=== PATIENT | male | born 1985 | race American Indian/Alaskan Native ===

== ENCOUNTER 2018-09-14 12:41 | Inpatient (IN) | payer BC ==
[2018-09-14] MEDS ORDERED: Morphine 2 mg/ml ISec IVP STA (13:26)
[2018-09-14] MEDS ORDERED: Sodium Chloride 0.9% 500 ML IV STA (13:26)
--- NOTE | 2018-09-14 13:32 | ED PDOC ---
Arrival/HPI - General Chief Complaint: Abdominal Pain Time Seen by Provider: 09/14/18 12:48 Historian: Patient - History of Present Illness Narrative History of Present Illness (Text): 09/14/18 13:25 Patient is a 33 year old male, with past medical history of diverticulitis, presents to the Emergency Department complaining of left lower quadrant abdominal pain since Thursday morning. Patient reports sharp constant pain rated at 10/10 in severity which progressively worsened with pain radiating to the right side throughout Thursday, prompting him to present to the ED for medical evaluation. Patient reports similar symptoms early July for which he was diagnosed with diverticulitis at [facility]. Patient denies any other associated somatic complaints. Patient denies any fever, chills, nausea, vomiting, or diarrhea. Patient denies any dysuria, urinary output changes or back pain. Denies any headache or dizziness. Denies any other complaints. Denies dark or bloody stools. 09/14/18 17:53 Time/Duration: < week Symptom Onset: Gradual Symptom Course: Unchanged Quality: Aching Activities at Onset: Light Context: Home Past Medical History - Provider Review Nursing Documentation Reviewed: Yes - Infectious Disease Hx of Infectious Diseases: None - Cardiac Hx Cardiac Disorders: No - Pulmonary Hx Respiratory Disorders: No - Neurological Hx Neurological Disorder: No - HEENT Hx HEENT Disorder: No - Renal Hx Renal Disorder: No - Endocrine/Metabolic Hx Endocrine Disorders: No - Hematological/Oncological Hx Blood Disorders: No - Integumentary Hx Dermatological Disorder: No - Musculoskeletal/Rheumatological Hx Musculoskeletal Disorders: No - Gastrointestinal Hx Gastrointestinal Disorders: Yes Hx Diverticulitis: Yes - Genitourinary/Gynecological Hx Genitourinary Disorders: No - Psychiatric Hx Psychophysiologic Disorder: No Hx Substance Use: Yes (Socially Marijuana) - Surgical History Other/Comment: Biopsy of abdomen Family/Social History - Physician Review Nursing Documentation Reviewed: Yes Family/Social History: Unknown Family HX Smoking Status: Light Smoker < 10 Cigarettes Daily Hx Alcohol Use: Yes Frequency of alcohol use: Socially Hx Substance Use: Yes (Socially Marijuana) Allergies/Home Meds Allergies/Adverse Reactions: Allergies shellfish derived Allergy (Verified 09/14/18 12:52) ANAPHYLAXIS Home Medications: Home Meds Medication Instructions Recorded Confirmed No Known Home Med 09/14/18 09/14/18 Review of Systems - Review of Systems Constitutional: absent: Fatigue, Fevers Respiratory: absent: SOB, Cough, Wheezing Cardiovascular: absent: Chest Pain, DURAN Gastrointestinal: Abdominal Pain, Appetite Changes. absent: Diarrhea, Nausea, Vomiting, Hematochezia, Hematemesis, Food Intolerance Genitourinary Male: absent: Dysuria, Hematuria Musculoskeletal: absent: Back Pain, Neck Pain Skin: absent: Rash Neurological: absent: Headache, Dizziness Endocrine: absent: Polyuria Hemo/Lymphatic: absent: Easy Bleeding Psychiatric: absent: Anxiety, Depression Physical Exam - Physical Exam Narrative Physical Exam (Text): 09/14/18 13:33 Head: Atraumatic. Normocephalic. Eyes: PERRL. EOMI. Conjunctivae are not pale. Sclera anicteric. ENT: Mucous membranes are moist and intact. Oropharynx is clear and symmetric. Neck: Supple. Full ROM. No JVD. No lymphadenopathy. No meningeal signs. Cardiovascular: Regular rate. Regular rhythm. No murmurs, rubs, or gallops. Distal pulses are 2+ and symmetric. Pulmonary/Chest: No evidence of respiratory distress. Clear to auscultation bilaterally. No wheezing, rales or rhonchi. Abdominal: Soft and non-distended. Focal LLQ abdominal tenderness. Moderate pain on palpation. No rebound, guarding, or rigidity. No organomegaly. Good bowel sounds. No inguinal mass. Genitourinary: no testicular pain Back: No CVA tenderness. Extremities: No edema. No cyanosis. No clubbing. Full range of motion in all extremities. No calf tenderness. No pain with straight leg testing. Skin: Skin is warm and dry. No petechiae. No purpura. Neurological: Alert, awake, and oriented. Motor and sensory exam intact. Psychiatric: Good eye contact. Normal interaction, affect, and behavior. Vital Signs Reviewed: Yes Vital Signs Temp Pulse Resp BP Pulse Ox 09/14/18 12:52 97.6 F 84 17 106/68 97 Temperature: Afebrile Blood Pressure: Normal Pulse: Regular Respiratory Rate: Normal Appearance: Positive for: Non-Toxic, Uncomfortable Pain Distress: Moderate Mental Status: Positive for: Alert and Oriented X 3 Medical Decision Making ED Course and Treatment: 09/14/18 13:35 Impression: 33 year old male presents to the Emergency Department complaining of left lower quadrant abdominal pain constant, for past 2-3 days. Differential Diagnosis included but are not limited to: Bowel obstruction vs. diverticulitis vs. colitis Plan: -- VBG -- CT of Abdomen/Pelvis -- Labs -- Morphine -- IV Fluids -- Blood Culture -- Urine Culture -- Urinalysis -- Reassess and disposition Prior Visits: Notes and results from previous visits were reviewed. Progress Notes: 09/14/18 13:[address] of Abdomen/Pelvis with IV contrast last month "early July at [place]" "showed diverticulitis". Patient on exam with focal left lower quadrant pain, no pulsatile masses. IV pain medication and iv line with fluids ordered. On reassessment pain improved but persistent. 09/14/18 15:08 CT suggestive of colitis possible diverticulitis. Due to persistent and worsening symptoms despite outpatient treatment with antibiotics, patient will be admitted for serial exams, iv antibiotics. Abnormal CT findings reviewed with patient. He has mild leukocytosis. Case discussed with hospitalist, who is aware and accepts patient under his service. IV antibiotics initiated. Patient informs improved pain with morphine. 09/14/18 17:58 - RAD Interpretation Narrative RAD Interpretations (Text): 09/14/18 15:00 CT of Abdomen reviewed by radiologist, shows: Segmental colitis affects the proximal to mid sigmoidal colon with no deinite free intra peritoneal gas or definite abscess appreciated. Borderline diverticulitis changes may indicate that this is diverticulitis. Lack of intravenous and oral contrast limits the evaluation. Secret Service Agent: Radiologist - Neoibe Statement The provider has reviewed the documentation as recorded by the Neoibe Lucy Castle. All medical record entries made by the Neoibzeny were at my direction and personally dictated by me. I have reviewed the chart and agree that the record accurately reflects my personal performance of the history, physical exam, medical decision making, and the department course for this patient. I have also personally directed, reviewed, and agree with the discharge instructions and disposition. Disposition/Present on Arrival - Present on Arrival Any Indicators Present on Arrival: No History of DVT/PE: No History of Uncontrolled Diabetes: No Urinary Catheter: No History of Decub. Ulcer: No History Surgical Site Infection Following: None - Disposition Have Diagnosis and Disposition been Completed?: Yes Diagnosis: Abdominal pain, Colitis, Diverticulitis Disposition: HOSPITALIZED Disposition Time: 14:45 Patient Plan: Admission Patient Problems: Current Active Problems Problem Status Onset Abdominal pain Acute Colitis Acute Diverticulitis Acute Condition: FAIR
[2018-09-14 14:24] LABS: BASO # 0.01 K/mm3 (0.0-2.0); BASO % 0.1 % (0.0-3.0); EOS # 0.1 (0.0-0.7); EOS % 0.4 % (1.5-5.0); GRAN # 9.28 (1.4-6.5); GRAN % 80.5 % (50.0-68.0); HEMOGLOBIN 14.5 g/dL (14.0-18.0); LYMPH # 1.2 (1.2-3.4); LYMPH % 10.2 % (22.0-35.0); MEAN CELL VOLUME 79.5 fl (80.0-105.0); MEAN CORPUSCULAR HEMOGLOBIN 27.2 pg (25.0-35.0); MEAN CORPUSCULAR HGB CONC 34.2 g/dl (31.0-37.0); MEAN PLATELET VOLUME 10.6 fl (7.0-11.0); MONO % 8.8 % (1.0-6.0); RBC 5.33 10^6/uL (3.5-6.1); RED CELL DISTRIBUTION WIDTH 14.6 % (11.5-14.5); VENOUS BLOOD GAS BASE EXCESS 3.8 mmol/L (0.0-2.0); VENOUS BLOOD GAS PO2 37 mm/Hg (30-55); VENOUS BLOOD PH 7.35 (7.32-7.43); WHITE BLOOD COUNT 11.5 10^3/ul (4.5-11.0)
[2018-09-14 14:32] LABS: INR 1.15; PROTHROMBIN TIME 13.3 SECONDS (9.4-12.5)
[2018-09-14 14:33] LABS: PARTIAL THROMBOPLASTIN TIME 32.7 Seconds (25.1-36.5)
[2018-09-14 14:34] LABS: ALB/GLOB RATIO 1.3 (1.1-1.8); ALBUMIN 4.3 g/dL (3.0-4.8); ALT/SGPT 29 U/L (7-56); AMYLASE 86 U/L (35-125); AST/SGOT 25 U/L (17-59); BLOOD UREA NITROGEN 11 mg/dL (7-21); CALCIUM 9.5 mg/dL (8.4-10.5); GFR NON-AFRICAN AMERICAN > 60; LIPASE 60 U/L (23-300)
--- NOTE | 2018-09-14 14:37 | CT ---
Date of service: 09/14/2018 PROCEDURE: CT Abdomen and Pelvis without intravenous contrast HISTORY: llq abdominal pain COMPARISON: None. TECHNIQUE: Helical CT of the abdomen and pelvis was performed without oral or intravenous contrast as per referring physician request. Coronal and sagittal reformats were generated. Contrast dose: None Radiation dose: Total exam DLP = 322.79 mGy-cm. This CT exam was performed using one or more of the following dose reduction techniques: Automated exposure control, adjustment of the mA and/or kV according to patient size, and/or use of iterative reconstruction technique. FINDINGS: LOWER THORAX: Unremarkable. LIVER: Unremarkable. No gross lesion or ductal dilatation. GALLBLADDER AND BILE DUCTS: Unremarkable. PANCREAS: Unremarkable. No gross lesion or ductal dilatation. SPLEEN: Unremarkable. ADRENALS: Unremarkable. No mass. KIDNEYS AND URETERS: There is no radiodense urolithiasis, obstructive uropathy or perinephric reaction bilaterally. Kidneys appear homogeneous in overall density throughout. Urinary bladder appears unremarkable as well. VASCULATURE: Unremarkable. No aortic aneurysm. No aortic atherosclerotic calcification or mural plaque present. BOWEL: No bowel obstruction identified. There is prominent thickening of proximal to mid sigmoid colon with local pericolic reaction but no associated free intrarenal gas or prominent fluid collection. Pattern is suggestive of segmental colitis. There questionable diverticula associated with this segment and this could reflect diverticulitis. Clinically correlate further. APPENDIX: No CT evidence to suggest appendicitis at this time. Punctate appendicular is or retained oral contrast material is identified within the appendix. PERITONEUM: Unremarkable. No free fluid. No free air. LYMPH NODES: Unremarkable. No enlarged lymph nodes. BLADDER: Unremarkable. REPRODUCTIVE: Unremarkable. BONES: No acute fracture. OTHER FINDINGS: None. IMPRESSION: Segmental colitis affects the proximal to mid sigmoid colon with no definite free intra peritoneal gas or definite abscess appreciated. Borderline diverticular changes may indicate that this is diverticulitis. Lack of intravenous and oral contrast limits the evaluation.
[2018-09-14] MEDS ORDERED: metroNIDAZOLE IV 500 mg/100 ml 500 MG/100 ML BAG IV ONE (14:54)
[2018-09-14] MEDS ORDERED: cefTRIAXone 1 gm 1 GM/100 ML BAG IVPB STA (14:54)
[2018-09-14 16:07] LABS: PH,URINE 6.5 (4.7-8.0); URINE BILIRUBIN NEGATIVE (NEGATIVE); URINE BLOOD NEGATIVE (NEGATIVE); URINE GLUCOSE (UA) NEGATIVE (NEGATIVE); URINE LEUKOCYTE ESTERASE TRACE Leu/uL (NEGATIVE); URINE PROTEIN NEGATIVE mg/dL (<30 mg/dL); URINE UROBILINOGEN 0.2 E.U./dL (<1 E.U./dL)
[2018-09-14 16:10] LABS: URINE APPEARANCE CLEAR (CLEAR); URINE COLOR YELLOW (YELLOW)
--- NOTE | 2018-09-14 16:19 | CP.PCM.HP ---
<Den Marr - Last Filed: 09/14/18 16:29> History of Present Illness - History of Present Illness History of Present Illness: Den Marr PGY1 History and Physical for Dr Torres Pt is a 33 year old male, with PMH of diverticulitis, presents to the Emergency Department complaining of LLQ abdominal pain since (09/12/18) Thursday morning. Pt states he has had a constant sharp 10/10 pain which has gotten progressively worse and radiates to his right side since Thursday, prompting him to present to the ED for medical evaluation. Pt also had an episode of diverticulitis in early July which was diagnosed at [facility]. Patient denies any other complaints. Denies any fever, chills, nausea, vomiting, or diarrhea. A 12 point ROS was obtained and added to the HPI where appropriate. PMH: diverticulitis PSH: colonoscopy SH: Tobacco "several cigs/day", Alcohol occasionally, Drugs: marijuana FH: denies Home meds: denies Allergies: shellfish Present on Admission - Present on Admission Any Indicators Present on Admission: No Review of Systems - Review of Systems Review of Systems: a 12 point ROS was obtained and added to the HPI where appropriate. Past Patient History - Infectious Disease Hx of Infectious Diseases: None - Past Social History Smoking Status: Light Smoker < 10 Cigarettes Daily - CARDIAC Hx Cardiac Disorders: No - PULMONARY Hx Respiratory Disorders: No - NEUROLOGICAL Hx Neurological Disorder: No - HEENT Hx HEENT Problems: No - RENAL Hx Chronic Kidney Disease: No - ENDOCRINE/METABOLIC Hx Endocrine Disorders: No - HEMATOLOGICAL/ONCOLOGICAL Hx Blood Disorders: No - INTEGUMENTARY Hx Dermatological Problems: No - MUSCULOSKELETAL/RHEUMATOLOGICAL Hx Musculoskeletal Disorders: No - GASTROINTESTINAL Hx Gastrointestinal Disorders: Yes Hx Diverticulitis: Yes - GENITOURINARY/GYNECOLOGICAL Hx Genitourinary Disorders: No - PSYCHIATRIC Hx Psychophysiologic Disorder: No Hx Substance Use: Yes (Socially Marijuana) - SURGICAL HISTORY Other/Comment: Biopsy of abdomen Meds Allergies/Adverse Reactions: Allergies Allergy/AdvReac Type Severity Reaction Status Date / Time shellfish derived Allergy ANAPHYLAXIS Verified 09/14/18 12:52 Physical Exam - Head Exam Head Exam: ATRAUMATIC, NORMAL INSPECTION, NORMOCEPHALIC - Eye Exam Eye Exam: EOMI - ENT Exam ENT Exam: Mucous Membranes Moist - Neck Exam Neck exam: Positive for: Full Rom - Respiratory Exam Respiratory Exam: Clear to Auscultation Bilateral, NORMAL BREATHING PATTERN. absent: Accessory Muscle Use, Wheezes, Respiratory Distress - Cardiovascular Exam Cardiovascular Exam: RRR, +S1, +S2. absent: Diastolic murmur, Systolic Murmur - GI/Abdominal Exam GI & Abdominal Exam: Normal Bowel Sounds, Soft, Tenderness. absent: Firm, Rebound, Rigid Additional comments: tenderness to palpation in the LLQ - Extremities Exam Extremities exam: Positive for: full ROM. Negative for: calf tenderness, pedal edema - Neurological Exam Neurological exam: Alert, Oriented x3 - Psychiatric Exam Psychiatric exam: Normal Affect, Normal Mood - Skin Skin Exam: Dry, Normal Color, Warm Results - Vital Signs Recent Vital Signs: Last Vital Signs Temp 97.6 F 09/14/18 12:52 Pulse 84 09/14/18 12:52 Resp 17 09/14/18 12:52 BP 106/68 09/14/18 12:52 Pulse Ox 97 09/14/18 12:52 - Labs Result Diagrams: 09/14/18 14:10 09/14/18 14:10 Labs: Laboratory Results - last 24 hr 09/14/18 09/14/18 09/14/18 14:10 14:10 14:10 WBC 11.5 H RBC 5.33 Hgb 14.5 Hct 42.4 MCV 79.5 L MCH 27.2 MCHC 34.2 RDW 14.6 H Plt Count 280 MPV 10.6 Gran % 80.5 H Lymph % (Auto) 10.2 L Dewitt % (Auto) 8.8 H Eos % (Auto) 0.4 L Baso % (Auto) 0.1 Gran # 9.28 H Lymph # (Auto) 1.2 Dewitt # (Auto) 1.0 H Eos # (Auto) 0.1 Baso # (Auto) 0.01 PT INR APTT pO2 37 VBG pH 7.35 VBG pCO2 56.0 VBG HCO3 30.9 H VBG Total CO2 32.6 H VBG O2 Sat (Calc) 70.9 H VBG Base Excess 3.8 H VBG Potassium 4.6 Sodium 136.0 137 Chloride 100.0 101 Glucose 98 Lactate 0.9 FiO2 21.0 Potassium 4.6 Carbon Dioxide 29 Anion Gap 12 BUN 11 Creatinine 0.9 Est GFR ( Amer) > 60 Est GFR (Non-Af Amer) > 60 Random Glucose 100 Calcium 9.5 Total Bilirubin 0.5 AST 25 ALT 29 Alkaline Phosphatase 76 Total Protein 7.6 Albumin 4.3 Globulin 3.4 Albumin/Globulin Ratio 1.3 Amylase 86 Lipase 60 Venous Blood Potassium 4.6 09/14/18 14:10 WBC RBC Hgb Hct MCV MCH MCHC RDW Plt Count MPV Gran % Lymph % (Auto) Dewitt % (Auto) Eos % (Auto) Baso % (Auto) Gran # Lymph # (Auto) Dewitt # (Auto) Eos # (Auto) Baso # (Auto) PT 13.3 H INR 1.15 APTT 32.7 pO2 VBG pH VBG pCO2 VBG HCO3 VBG Total CO2 VBG O2 Sat (Calc) VBG Base Excess VBG Potassium Sodium Chloride Glucose Lactate FiO2 Potassium Carbon Dioxide Anion Gap BUN Creatinine Est GFR ( Amer) Est GFR (Non-Af Amer) Random Glucose Calcium Total Bilirubin AST ALT Alkaline Phosphatase Total Protein Albumin Globulin Albumin/Globulin Ratio Amylase Lipase Venous Blood Potassium Assessment & Plan - Assessment and Plan (Free Text) Assessment: Pt is a 33 year old male, with PMH of diverticulitis, presents to the Emergency Department complaining of LLQ abdominal pain since (09/12/18) Thursday morning. Pt states he has had a constant sharp 10/10 pain which has gotten progressively worse and radiates to his right side since Thursday, prompting him to present to the ED for medical evaluation. Plan: Diverticulitis - WBC 11.5 - follow up blood, urine cultures - metronidaozle - ceftriaxone - morphine - zofran - NS@100 - NPO - CT abdomen and pelvis: segmental colitis of the proximal to mid sigmoid colon with no definite free intra perotineal gas or abscess appreciated. Borderline diverticular changes - GI consulted Ppx - protonix - SCD Pt seen, examined, assessment an plan discussed with Dr Brian Marr PGY1 - Date & Time Date: 09/14/18 Time: 16:22 <Daniel Torres - Last Filed: 09/14/18 16:50> Results - Vital Signs Recent Vital Signs: Last Vital Signs Temp 97.6 F 09/14/18 12:52 Pulse 84 09/14/18 12:52 Resp 17 09/14/18 12:52 BP 106/68 09/14/18 12:52 Pulse Ox 97 09/14/18 12:52 - Labs Result Diagrams: 09/14/18 14:10 09/14/18 14:10 Labs: Laboratory Results - last 24 hr 09/14/18 09/14/18 09/14/18 14:10 14:10 14:10 WBC 11.5 H RBC 5.33 Hgb 14.5 Hct 42.4 MCV 79.5 L MCH 27.2 MCHC 34.2 RDW 14.6 H Plt Count 280 MPV 10.6 Gran % 80.5 H Lymph % (Auto) 10.2 L Dewitt % (Auto) 8.8 H Eos % (Auto) 0.4 L Baso % (Auto) 0.1 Gran # 9.28 H Lymph # (Auto) 1.2 Dewitt # (Auto) 1.0 H Eos # (Auto) 0.1 Baso # (Auto) 0.01 PT INR APTT pO2 37 VBG pH 7.35 VBG pCO2 56.0 VBG HCO3 30.9 H VBG Total CO2 32.6 H VBG O2 Sat (Calc) 70.9 H VBG Base Excess 3.8 H VBG Potassium 4.6 Sodium 136.0 137 Chloride 100.0 101 Glucose 98 Lactate 0.9 FiO2 21.0 Potassium 4.6 Carbon Dioxide 29 Anion Gap 12 BUN 11 Creatinine 0.9 Est GFR ( Amer) > 60 Est GFR (Non-Af Amer) > 60 Random Glucose 100 Calcium 9.5 Total Bilirubin 0.5 AST 25 ALT 29 Alkaline Phosphatase 76 Total Protein 7.6 Albumin 4.3 Globulin 3.4 Albumin/Globulin Ratio 1.3 Amylase 86 Lipase 60 Venous Blood Potassium 4.6 Urine Color Urine Appearance Urine pH Ur Specific [place] Urine Protein Urine Glucose (UA) Urine Ketones Urine Blood Urine Nitrate Urine Bilirubin Urine Urobilinogen Ur Leukocyte Esterase Urine RBC Urine WBC Ur Epithelial Cells Urine Bacteria Hyaline Casts 09/14/18 09/14/18 14:10 15:45 WBC RBC Hgb Hct MCV MCH MCHC RDW Plt Count MPV Gran % Lymph % (Auto) Dewitt % (Auto) Eos % (Auto) Baso % (Auto) Gran # Lymph # (Auto) Dewitt # (Auto) Eos # (Auto) Baso # (Auto) PT 13.3 H INR 1.15 APTT 32.7 pO2 VBG pH VBG pCO2 VBG HCO3 VBG Total CO2 VBG O2 Sat (Calc) VBG Base Excess VBG Potassium Sodium Chloride Glucose Lactate FiO2 Potassium Carbon Dioxide Anion Gap BUN Creatinine Est GFR ( Amer) Est GFR (Non-Af Amer) Random Glucose Calcium Total Bilirubin AST ALT Alkaline Phosphatase Total Protein Albumin Globulin Albumin/Globulin Ratio Amylase Lipase Venous Blood Potassium Urine Color Yellow Urine Appearance Clear Urine pH 6.5 Ur Specific [place] 1.015 Urine Protein Negative Urine Glucose (UA) Negative Urine Ketones 15 H Urine Blood Negative Urine Nitrate Negative Urine Bilirubin Negative Urine Urobilinogen 0.2 Ur Leukocyte Esterase Trace H Urine RBC Negative Urine WBC 0 - 2 Ur Epithelial Cells None Urine Bacteria Neg Hyaline Casts 0 - 2 Attending/Attestation - Attestation I have personally seen and examined this patient.: Yes I have fully participated in the care of the patient.: Yes I have reviewed all pertinent clinical information: Yes Notes (Text): 09/14/18 16:47 33 year old male with past medical history of diverticulitis who presents with complaint of left lower quadrant pain. He states when didn't complete his recently prescribed antibiotics last month from his initial diverticulitis episode. CT abd/pelvis was reviewed; shows segmental colitis of the proximal to mid sigmoid colon with borderline diverticular changes. Patient is NPO, on iv fluids, antibiotics and analgesics. GI evaluation is requested. Daniel Torres MD Hospitalist.
[2018-09-14 16:24] LABS: URINE BACTERIA NEG (NEG); URINE HYALINE CAST 0 - 2 /hpf; URINE RBC NEGATIVE /hpf (0-2); URINE WBC 0 - 2 /hpf (0-6)
[2018-09-14] MEDS: Sodium Chloride 0.9% 1,000 ML IV SCH (17:27)
[2018-09-14] MEDS: Morphine 2 mg/ml ISec IVP PRN (19:36)
[2018-09-14] MEDS ORDERED: Influenza Vaccine 60 mcg/0.5 mL SYR (4YR UP) IM ONE (20:29)
[2018-09-14] MEDS: metroNIDAZOLE IV 500 mg/100 ml 500 MG/100 ML BAG IVPB SCH (21:00)
[2018-09-15] MEDS: Morphine 2 mg/ml ISec IVP PRN ×4 (01:47→21:15)
[2018-09-15] MEDS: Sodium Chloride 0.9% 1,000 ML IV SCH ×2 (03:00→13:40)
[2018-09-15] MEDS: metroNIDAZOLE IV 500 mg/100 ml 500 MG/100 ML BAG IVPB SCH ×3 (06:02→21:03)
[2018-09-15 07:36] LABS: HEMOGLOBIN 12.9 g/dL (14.0-18.0); MEAN CELL VOLUME 79.7 fl (80.0-105.0); MEAN CORPUSCULAR HEMOGLOBIN 26.7 pg (25.0-35.0); MEAN CORPUSCULAR HGB CONC 33.5 g/dl (31.0-37.0); MEAN PLATELET VOLUME 10.6 fl (7.0-11.0); RBC 4.83 10^6/uL (3.5-6.1); RED CELL DISTRIBUTION WIDTH 14.6 % (11.5-14.5); WHITE BLOOD COUNT 10.2 10^3/ul (4.5-11.0)
[2018-09-15 07:38] LABS: ALB/GLOB RATIO 1.2 (1.1-1.8); ALBUMIN 3.6 g/dL (3.0-4.8); ALT/SGPT 25 U/L (7-56); AST/SGOT 21 U/L (17-59); BLOOD UREA NITROGEN 12 mg/dL (7-21); CALCIUM 8.8 mg/dL (8.4-10.5); GFR NON-AFRICAN AMERICAN > 60
--- NOTE | 2018-09-15 07:42 | CARD ---
APPROVED REPORT Date of service: 09/14/2018 EKG Measurement Heart [id number] <Conclusion> Normal sinus rhythm LVH by voltage STTW changes
[2018-09-15] MEDS: cefTRIAXone 1 gm 1 GM/100 ML BAG IVPB SCH (10:00)
--- NOTE | 2018-09-15 11:17 | CP.PCM.PN ---
<Den Marr - Last Filed: 09/15/18 11:26> Subjective - Date & Time of Evaluation Date of Evaluation: 09/15/18 Time of Evaluation: 07:00 - Subjective Subjective: Pt seen and examined this morning at bedside. Pt denies having a BM yet, reports LLQ abdominal pain which is improving Objective - Vital Signs/Intake and Output Vital Signs (last 24 hours): Temp Pulse Resp BP Pulse Ox 97.3 F L 73 20 130/89 100 09/14/18 22:09 09/14/18 22:09 09/14/18 22:09 09/14/18 22:09 09/14/18 22:09 Intake and Output: 09/15/18 09/15/18 06:59 18:59 Intake Total 1200 Balance 1200 - Medications Medications: Current Medications Sodium Chloride (Sodium Chloride 0.9%) 1,000 mls @ 100 mls/hr IV .Q10H [facility] Last Admin: 09/15/18 03:00 Dose: 100 mls/hr Metronidazole (Flagyl) 500 mg in 100 mls @ 100 mls/hr IVPB Q8 [facility]; Protocol Last Admin: 09/15/18 06:02 Dose: 100 mls/hr Ceftriaxone Sodium (Rocephin 1 Gram Ivpb) 1 gm in 100 mls @ 100 mls/hr IVPB DAILY [facility]; Protocol Morphine Sulfate (Morphine) 2 mg IVP Q6H PRN PRN Reason: Pain, severe (8-10) Last Admin: 09/15/18 08:18 Dose: 2 mg Ondansetron HCl (Zofran Inj) 4 mg IVP Q6H PRN PRN Reason: Nausea/Vomiting Pantoprazole Sodium (Protonix Inj) 40 mg IVP DAILY [facility]ICKY - Labs Labs: 09/15/18 07:00 09/15/18 07:00 PT 13.3 SECONDS (9.4-12.5) H 09/14/18 14:10 INR 1.15 09/14/18 14:10 APTT 32.7 Seconds (25.1-36.5) 09/14/18 14:10 - Constitutional Appears: Non-toxic, No Acute Distress - Head Exam Head Exam: ATRAUMATIC, NORMAL INSPECTION, NORMOCEPHALIC - Eye Exam Eye Exam: EOMI - ENT Exam ENT Exam: Mucous Membranes Moist - Neck Exam Neck Exam: Full ROM - Respiratory Exam Respiratory Exam: Clear to Ausculation Bilateral, NORMAL BREATHING PATTERN. absent: Wheezes, Respiratory Distress, Stridor - Cardiovascular Exam Cardiovascular Exam: RRR, +S1, +S2. absent: Diastolic murmur, Murmur - GI/Abdominal Exam GI & Abdominal Exam: Soft, Tenderness, Normal Bowel Sounds. absent: Guarding, Rigid, Rebound Additional comments: tender to palpation LLQ - Neurological Exam Neurological Exam: Alert, Awake, Oriented x3 - Psychiatric Exam Psychiatric exam: Normal Affect, Normal Mood - Skin Skin Exam: Dry, Normal Color, Warm Assessment and Plan - Assessment and Plan (Free Text) Assessment: Pt is a 33 year old male, with PMH of diverticulitis, presents to the Emergency Department complaining of LLQ abdominal pain since (09/12/18) Thursday morning. Pt states he has had a constant sharp 10/10 pain which has gotten progressively worse and radiates to his right side since Thursday, prompting him to present to the ED for medical evaluation. Plan: Diverticulitis - leukocytosis has resolved - blood cultures: pending - urine cultures: pending - continue metronidaozle - continue ceftriaxone - morphine for pain control - zofran - NS@100 - NPO - CT abdomen and pelvis: segmental colitis of the proximal to mid sigmoid colon with no definite free intra perotineal gas or abscess appreciated. Borderline diverticular changes - GI consulted Anemia - Hgb 12.9 - continue to monitor Ppx - protonix - SCD Pt seen, examined, assessment an plan discussed with Dr Brian Marr PGY1 <Daniel Torres - Last Filed: 09/16/18 07:56> Objective - Vital Signs/Intake and Output Vital Signs (last 24 hours): Temp Pulse Resp BP Pulse Ox 97.6 F 57 L 20 136/75 100 09/15/18 22:00 09/15/18 22:00 09/16/18 01:30 09/15/18 22:00 09/15/18 22:00 Intake and Output: 09/16/18 09/16/18 06:59 18:59 Intake Total 2400 Balance 2400 - Medications Medications: Current Medications Sodium Chloride (Sodium Chloride 0.9%) 1,000 mls @ 100 mls/hr IV .Q10H [facility]ICKY Last Admin: 09/16/18 03:00 Dose: 100 mls/hr Metronidazole (Flagyl) 500 mg in 100 mls @ 100 mls/hr IVPB Q8 [facility]; Protocol Last Admin: 09/16/18 06:12 Dose: 100 mls/hr Ceftriaxone Sodium (Rocephin 1 Gram Ivpb) 1 gm in 100 mls @ 100 mls/hr IVPB DAILY [facility]; Protocol Last Admin: 09/15/18 10:00 Dose: 100 mls/hr Morphine Sulfate (Morphine) 2 mg IVP Q6H PRN PRN Reason: Pain, severe (8-10) Last Admin: 09/15/18 21:15 Dose: 2 mg Ondansetron HCl (Zofran Inj) 4 mg IVP Q6H PRN PRN Reason: Nausea/Vomiting Pantoprazole Sodium (Protonix Inj) 40 mg IVP DAILY [facility] Last Admin: 09/15/18 10:36 Dose: 40 mg - Labs Labs: 09/16/18 07:00 09/16/18 07:00 PT 13.3 SECONDS (9.4-12.5) H 09/14/18 14:10 INR 1.15 09/14/18 14:10 APTT 32.7 Seconds (25.1-36.5) 09/14/18 14:10 Attending/Attestation - Attestation I have personally seen and examined this patient.: Yes I have fully participated in the care of the patient.: Yes I have reviewed all pertinent clinical information, including history, physical exam and plan: Yes Notes (Text): 09/15/18 33 year old male with past medical history of diverticulitis who presented with complaint of left lower quadrant pain. He states when didn't complete his recently prescribed antibiotics last month from his initial diverticulitis episode. CT abd/pelvis showed segmental colitis of the proximal to mid sigmoid colon with borderline diverticular changes. GI evaluation was appreciated. Continue with NPO, iv fluids, analgesics and antibiotics. Daniel Torres MD Hospitalist.
[2018-09-16] MEDS: Sodium Chloride 0.9% 1,000 ML IV SCH ×2 (03:00→12:43)
--- NOTE | 2018-09-16 03:16 | CON ---
DATE: 09/15/2018 GASTROENTEROLOGY CONSULTATION REQUESTING PHYSICIAN: Dr. Torres. REASON FOR CONSULTATION: I have been asked to see this 33-year-old male with a history of diverticulitis approximately 6 weeks ago, treated with oral antibiotics. Subsequently underwent colonoscopy approximately [address] Minaya in [place] which apparently showed diverticulosis, who comes to the emergency room with a 3-day history of left lower quadrant abdominal pain. He denies any fevers or chills. He denies any rectal bleeding or melena. CT scan of the abdomen performed in the emergency room revealed some mural thickening of the descending and sigmoid colon with some mild pericolonic inflammatory changes. There is no evidence of perforation or pericolonic abscess. He denies any pneumaturia or dysuria. PAST MEDICAL HISTORY: Notable for diverticulitis. SOCIAL HISTORY: He smokes under pack of cigarettes per day. He consumes alcohol on a social basis. He also smokes marijuana several times a week. FAMILY HISTORY: Noncontributory. MEDICATIONS AT HOME: None. REVIEW OF SYSTEMS: A 14-point review of systems is notable for left lower quadrant abdominal pain. PHYSICAL EXAMINATION: GENERAL: Well-developed male lying in bed in no acute distress. VITAL SIGNS: Reveal temperature of 97.3, blood pressure 130/89, heart rate 73. HEENT: Reveals sclerae to be white, conjunctivae pink. NECK: Supple. CHEST: Lungs are clear. HEART: Exam reveals a regular rate and rhythm. ABDOMEN: Soft. Mild left lower quadrant tenderness. No rebound, no guarding. EXTREMITIES: Show no edema. LABORATORY DATA: Reveals white blood cell count down to 10.2, hemoglobin 12.9, platelet count of 262,000. Chemistries reveal normal electrolytes. IMPRESSION: This is a 33-year-old male with recurrent left-sided diverticulitis without any evidence of perforation or abscess on CAT scan. RECOMMENDATIONS: 1. Would continue Rocephin 1 g daily. 2. Continue Flagyl 500 mg IV q.8 hours. 3. Would keep n.p.o. for now as he continues to have abdominal pain. If abdominal pain does not improve, he may need surgical evaluation. Marcos Jerome MD [facility] # [id number]
[2018-09-16] MEDS: metroNIDAZOLE IV 500 mg/100 ml 500 MG/100 ML BAG IVPB SCH ×3 (06:12→21:13)
[2018-09-16 07:33] LABS: MEAN CELL VOLUME 79.4 fl (80.0-105.0); MEAN CORPUSCULAR HEMOGLOBIN 26.3 pg (25.0-35.0); MEAN CORPUSCULAR HGB CONC 33.1 g/dl (31.0-37.0); MEAN PLATELET VOLUME 10.6 fl (7.0-11.0); RBC 4.57 10^6/uL (3.5-6.1); RED CELL DISTRIBUTION WIDTH 14.4 % (11.5-14.5); WHITE BLOOD COUNT 5.7 10^3/ul (4.5-11.0)
[2018-09-16 07:51] LABS: ALB/GLOB RATIO 1.2 (1.1-1.8); ALBUMIN 3.2 g/dL (3.0-4.8); ALT/SGPT 24 U/L (7-56); AST/SGOT 23 U/L (17-59); BLOOD UREA NITROGEN 13 mg/dL (7-21); CALCIUM 8.8 mg/dL (8.4-10.5); GFR NON-AFRICAN AMERICAN > 60
--- NOTE | 2018-09-16 08:32 | CP.PCM.PN ---
<Den Marr - Last Filed: 09/16/18 14:10> Subjective - Date & Time of Evaluation Date of Evaluation: 09/16/18 Time of Evaluation: 08:27 - Subjective Subjective: Pt seen and examined this morning at bedside. Denies chest pain, SOB. Reports some LLQ tenderness which has significantly improved since admission. Objective - Vital Signs/Intake and Output Vital Signs (last 24 hours): Temp Pulse Resp BP Pulse Ox 97.6 F 57 L 20 136/75 100 09/15/18 22:00 09/15/18 22:00 09/16/18 01:30 09/15/18 22:00 09/15/18 22:00 Intake and Output: 09/16/18 09/16/18 06:59 18:59 Intake Total 2400 Balance 2400 - Medications Medications: Current Medications Sodium Chloride (Sodium Chloride 0.9%) 1,000 mls @ 100 mls/hr IV .Q10H [facility] Last Admin: 09/16/18 03:00 Dose: 100 mls/hr Metronidazole (Flagyl) 500 mg in 100 mls @ 100 mls/hr IVPB Q8 [facility]; Protocol Last Admin: 09/16/18 06:12 Dose: 100 mls/hr Ceftriaxone Sodium (Rocephin 1 Gram Ivpb) 1 gm in 100 mls @ 100 mls/hr IVPB DAILY [facility]; Protocol Last Admin: 09/15/18 10:00 Dose: 100 mls/hr Morphine Sulfate (Morphine) 2 mg IVP Q6H PRN PRN Reason: Pain, severe (8-10) Last Admin: 09/15/18 21:15 Dose: 2 mg Ondansetron HCl (Zofran Inj) 4 mg IVP Q6H PRN PRN Reason: Nausea/Vomiting Pantoprazole Sodium (Protonix Inj) 40 mg IVP DAILY [facility] Last Admin: 09/15/18 10:36 Dose: 40 mg - Labs Labs: 09/16/18 07:00 09/16/18 07:00 PT 13.3 SECONDS (9.4-12.5) H 09/14/18 14:10 INR 1.15 09/14/18 14:10 APTT 32.7 Seconds (25.1-36.5) 09/14/18 14:10 - Constitutional Appears: Non-toxic, No Acute Distress - Head Exam Head Exam: ATRAUMATIC, NORMAL INSPECTION, NORMOCEPHALIC - Eye Exam Eye Exam: EOMI - ENT Exam ENT Exam: Mucous Membranes Moist - Neck Exam Neck Exam: Full ROM - Respiratory Exam Respiratory Exam: Clear to Ausculation Bilateral, NORMAL BREATHING PATTERN - Cardiovascular Exam Cardiovascular Exam: RRR, +S1, +S2. absent: Diastolic murmur - GI/Abdominal Exam GI & Abdominal Exam: Soft, Tenderness, Normal Bowel Sounds Additional comments: tender to palpation LLQ - Extremities Exam Extremities Exam: Full ROM. absent: Calf Tenderness, Pedal Edema - Neurological Exam Neurological Exam: Alert, Oriented x3 - Psychiatric Exam Psychiatric exam: Normal Affect, Normal Mood - Skin Skin Exam: Dry, Normal Color, Warm Assessment and Plan - Assessment and Plan (Free Text) Assessment: Pt is a 33 year old male, with PMH of diverticulitis, presents to the Emergency Department complaining of LLQ abdominal pain since (09/12/18) Thursday morning. Pt states he has had a constant sharp 10/10 pain which has gotten progressively worse and radiates to his right side since Thursday, prompting him to present to the ED for medical evaluation. Plan: Diverticulitis - leukocytosis has resolved - blood cultures: NGTD - urine cultures: NGTD - continue metronidaozle - continue ceftriaxone - morphine 2mg Q6 PRN for pain control - zofran - Clear liquid diet, advance as tolerated - CT abdomen and pelvis: segmental colitis of the proximal to mid sigmoid colon with no definite free intra perotineal gas or abscess appreciated. Borderline diverticular changes - GI Dr Jerome, cont Rocephin and flagyl, will need to be on oral antibiotics for another 10-12 days after discharge Anemia - Hgb 12 - continue to monitor Ppx - protonix - SCD Pt seen, examined, assessment an plan discussed with Dr Brian Marr PGY1 <Daniel Torres - Last Filed: 09/16/18 14:28> Objective - Vital Signs/Intake and Output Vital Signs (last 24 hours): Temp Pulse Resp BP Pulse Ox 97.9 F 80 20 116/73 100 09/16/18 06:00 09/16/18 06:00 09/16/18 06:00 09/16/18 06:00 09/16/18 06:00 Intake and Output: 09/16/18 09/16/18 06:59 18:59 Intake Total 2400 Balance 2400 - Medications Medications: Current Medications Sodium Chloride (Sodium Chloride 0.9%) 1,000 mls @ 100 mls/hr IV .Q10H [facility] Last Admin: 09/16/18 12:43 Dose: 100 mls/hr Metronidazole (Flagyl) 500 mg in 100 mls @ 100 mls/hr IVPB Q8 [facility]; Protocol Last Admin: 09/16/18 06:12 Dose: 100 mls/hr Ceftriaxone Sodium (Rocephin 1 Gram Ivpb) 1 gm in 100 mls @ 100 mls/hr IVPB DA TRACI [facility]; Protocol Last Admin: 09/16/18 10:41 Dose: 100 mls/hr Morphine Sulfate (Morphine) 2 mg IVP Q6H PRN PRN Reason: Pain, severe (8-10) Last Admin: 09/15/18 21:15 Dose: 2 mg Ondansetron HCl (Zofran Inj) 4 mg IVP Q6H PRN PRN Reason: Nausea/Vomiting Pantoprazole Sodium (Protonix Inj) 40 mg IVP DAILY [facility] Last Admin: 09/16/18 10:42 Dose: 40 mg - Labs Labs: 09/16/18 07:00 09/16/18 07:00 PT 13.3 SECONDS (9.4-12.5) H 09/14/18 14:10 INR 1.15 09/14/18 14:10 APTT 32.7 Seconds (25.1-36.5) 09/14/18 14:10 Attending/Attestation - Attestation I have personally seen and examined this patient.: Yes I have fully participated in the care of the patient.: Yes I have reviewed all pertinent clinical information, including history, physical exam and plan: Yes Notes (Text): 09/16/18 14:27 33 year old male with past medical history of diverticulitis who presented with complaint of left lower quadrant pain. He states when didn't complete his recently prescribed antibiotics last month from his initial diverticulitis episode. CT abd/pelvis showed segmental colitis of the proximal to mid sigmoid colon with borderline diverticular changes. GI is following. Diet is advanced to clear liquids this morning. He is analgesics and antibiotics. Possible d/c planning by tomorrow if patient is tolerating diet. Daniel Torres MD Hospitalist.
--- NOTE | 2018-09-16 09:01 | PN ---
DATE: 09/16/2018 SUBJECTIVE: The patient is lying in bed. He is asking for something to eat. He is hungry. Abdominal pain is less. He denies any nausea, vomiting, or rectal bleeding. PHYSICAL EXAMINATION: VITAL SIGNS: Reveal temperature of 97.6, blood pressure 136/75, heart rate of 57. HEENT: Reveals sclerae to be white. Conjunctivae pink. NECK: Supple. CHEST: Lungs are clear. HEART: Reveals regular rate and rhythm. ABDOMEN: Soft. There is mild left lower quadrant tenderness. There is no rebound. There is no guarding. EXTREMITIES: Show no edema. LABORATORY DATA: Reveal white blood cell count 5.7, hemoglobin 12. Electrolytes are normal. AST, ALT, alk phos were all normal. IMPRESSION: This is a 33-year-old male with recurrent diverticulitis with his last attack approximately 2 months ago. He is clinically improving. RECOMMENDATIONS: 1. Continue IV Rocephin and Flagyl. 2. We will start the patient on a clear liquid diet and advance to a low residue diet if this is tolerated. He will need to be on oral antibiotics for another 10-12 days upon discharge. Marcos Jerome MD
[2018-09-16] MEDS: cefTRIAXone 1 gm 1 GM/100 ML BAG IVPB SCH (10:41)
[2018-09-16 12:46] VITALS: BMI 23.5
[2018-09-17] MEDS: Morphine 2 mg/ml ISec IVP PRN (02:04)
[2018-09-17] MEDS: metroNIDAZOLE IV 500 mg/100 ml 500 MG/100 ML BAG IVPB SCH (05:33)
[2018-09-17 07:34] LABS: HEMOGLOBIN 11.9 g/dL (14.0-18.0); MEAN CELL VOLUME 78.7 fl (80.0-105.0); MEAN CORPUSCULAR HEMOGLOBIN 26.7 pg (25.0-35.0); MEAN CORPUSCULAR HGB CONC 33.9 g/dl (31.0-37.0); MEAN PLATELET VOLUME 10.4 fl (7.0-11.0); RBC 4.46 10^6/uL (3.5-6.1); RED CELL DISTRIBUTION WIDTH 14.2 % (11.5-14.5); WHITE BLOOD COUNT 5.1 10^3/uL (4.5-11.0)
[2018-09-17 08:06] LABS: ALB/GLOB RATIO 1.2 (1.1-1.8); ALBUMIN 3.2 g/dL (3.0-4.8); ALT/SGPT 26 U/L (7-56); AST/SGOT 19 U/L (17-59); BLOOD UREA NITROGEN 13 mg/dL (7-21); CALCIUM 8.7 mg/dL (8.4-10.5); GFR NON-AFRICAN AMERICAN > 60
[2018-09-17 08:23] VITALS: RESP 18
--- NOTE | 2018-09-17 10:30 | PN ---
DATE: 09/17/2018 SUBJECTIVE: The patient is lying in bed comfortable. He does not have any further abdominal pain. He has tolerated a low-residue diet. PHYSICAL EXAMINATION: VITAL SIGNS: Reveal temperature of 97.8, blood pressure 108/64, heart rate of 61. HEENT: Reveals sclerae to be white. Conjunctivae pink. NECK: Supple. CHEST: Lungs are clear. HEART: Reveals regular rate and rhythm. ABDOMEN: Soft. There is no tenderness in the left lower quadrant. EXTREMITIES: Show no edema. LABORATORY DATA: Reveals white blood cell count 5.1, hemoglobin 11.9. IMPRESSION: A 33-year-old male with recurrent sigmoid diverticulitis. The patient is stable from a GI standpoint. RECOMMENDATIONS: The patient needs to continue oral antibiotics. He can be treated with Cipro 500 b.i.d. and Flagyl 500 t.i.d. as well as a probiotic and a low-residue diet. He did have a colonoscopy several weeks ago. aMrcos Jerome MD
[2018-09-17] MEDS: cefTRIAXone 1 gm 1 GM/100 ML BAG IVPB SCH (11:06)
--- NOTE | 2018-09-17 13:53 | CP.PCM.DIS ---
<Den Marr - Last Filed: 09/17/18 14:17> Provider - Provider Date of Admission: 09/14/18 15:04 Attending physician: Daniel Torres MD Primary care physician: Jhon Bartholomew MD Time Spent in preparation of Discharge (in minutes): 45 Diagnosis - Discharge Diagnosis (1) Diverticulitis Status: Acute Priority: High (2) Abdominal pain Status: Acute Priority: High (3) Colitis Status: Acute Priority: High Hospital Course - Lab Results Lab Results: Micro Results 09/14/18 15:26 Blood Blood Culture - Preliminary NO GROWTH AFTER 48 HOURS 09/14/18 14:50 Blood Blood Culture - Preliminary NO GROWTH AFTER 48 HOURS 09/14/18 15:45 Urine Urine Culture - Final No Growth (<1,000 CFU/ML) Most Recent Lab Values WBC 5.1 10^3/uL (4.5-11.0) 09/17/18 07:15 RBC 4.46 10^6/uL (3.5-6.1) 09/17/18 07:15 Hgb 11.9 g/dL (14.0-18.0) L 09/17/18 07:15 Hct 35.1 % (42.0-52.0) L 09/17/18 07:15 MCV 78.7 fl (80.0-105.0) L 09/17/18 07:15 MCH 26.7 pg (25.0-35.0) 09/17/18 07:15 MCHC 33.9 g/dl (31.0-37.0) 09/17/18 07:15 RDW 14.2 % (11.5-14.5) 09/17/18 07:15 Plt Count 277 10^3/uL (120.0-450.0) 09/17/18 07:15 MPV 10.4 fl (7.0-11.0) 09/17/18 07:15 Gran % 80.5 % (50.0-68.0) H 09/14/18 14:10 Lymph % (Auto) 10.2 % (22.0-35.0) L 09/14/18 14:10 Todd % (Auto) 8.8 % (1.0-6.0) H 09/14/18 14:10 Eos % (Auto) 0.4 % (1.5-5.0) L 09/14/18 14:10 Baso % (Auto) 0.1 % (0.0-3.0) 09/14/18 14:10 Gran # 9.28 (1.4-6.5) H 09/14/18 14:10 Lymph # (Auto) 1.2 (1.2-3.4) 09/14/18 14:10 Todd # (Auto) 1.0 (0.1-0.6) H 09/14/18 14:10 Eos # (Auto) 0.1 (0.0-0.7) 09/14/18 14:10 Baso # (Auto) 0.01 K/mm3 (0.0-2.0) 09/14/18 14:10 PT 13.3 SECONDS (9.4-12.5) H 09/14/18 14:10 INR 1.15 09/14/18 14:10 APTT 32.7 Seconds (25.1-36.5) 09/14/18 14:10 pO2 37 mm/Hg (30-55) 09/14/18 14:10 VBG pH 7.35 (7.32-7.43) 09/14/18 14:10 VBG pCO2 56.0 (40-60) 09/14/18 14:10 VBG HCO3 30.9 mmol/l (21-28) H 09/14/18 14:10 VBG Total CO2 32.6 mmol.L (22-28) H 09/14/18 14:10 VBG O2 Sat (Calc) 70.9 % (40-65) H 09/14/18 14:10 VBG Base Excess 3.8 mmol/L (0.0-2.0) H 09/14/18 14:10 VBG Potassium 4.6 mmol/L (3.6-5.2) 09/14/18 14:10 Sodium 136.0 mmol/L (132-148) 09/14/18 14:10 Chloride 100.0 mmol/L (98-107) 09/14/18 14:10 Glucose 98 mg/dl (75-110) 09/14/18 14:10 Lactate 0.9 mmol/L (0.7-2.1) 09/14/18 14:10 FiO2 21.0 % 09/14/18 14:10 Sodium 138 mmol/L (132-148) 09/17/18 07:15 Potassium 4.3 mmol/L (3.6-5.0) 09/17/18 07:15 Chloride 109 mmol/L (98-107) H 09/17/18 07:15 Carbon Dioxide 23 mmol/L (21-33) 09/17/18 07:15 Anion Gap 11 (10-20) 09/17/18 07:15 BUN 13 mg/dL (7-21) 09/17/18 07:15 Creatinine 0.9 mg/dl (0.8-1.5) 09/17/18 07:15 Est GFR ( Amer) > 60 09/17/18 07:15 Est GFR (Non-Af Amer) > 60 09/17/18 07:15 Random Glucose 96 mg/dL (70-110) 09/17/18 07:15 Calcium 8.7 mg/dL (8.4-10.5) 09/17/18 07:15 Total Bilirubin < 0.1 mg/dL (0.2-1.3) L 09/17/18 07:15 AST 19 U/L (17-59) 09/17/18 07:15 ALT 26 U/L (7-56) 09/17/18 07:15 Alkaline Phosphatase 51 U/L (38-126) 09/17/18 07:15 Total Protein 5.9 g/dL (5.8-8.3) 09/17/18 07:15 Albumin 3.2 g/dL (3.0-4.8) 09/17/18 07:15 Globulin 2.7 gm/dL 09/17/18 07:15 Albumin/Globulin Ratio 1.2 (1.1-1.8) 09/17/18 07:15 Amylase 86 U/L (35-125) 09/14/18 14:10 Lipase 60 U/L (23-300) 09/14/18 14:10 Venous Blood Potassium 4.6 mmol/L (3.6-5.2) 09/14/18 14:10 Urine Color Yellow (YELLOW) 09/14/18 15:45 Urine Appearance Clear (CLEAR) 09/14/18 15:45 Urine pH 6.5 (4.7-8.0) 09/14/18 15:45 Ur Specific [place] 1.015 (1.005-1.035) 09/14/18 15:45 Urine Protein Negative mg/dL (<30 mg/dL) 09/14/18 15:45 Urine Glucose (UA) Negative mg/dL (NEGATIVE) 09/14/18 15:45 Urine Ketones 15 mg/dL (NEGATIVE) H 09/14/18 15:45 Urine Blood Negative (NEGATIVE) 09/14/18 15:45 Urine Nitrate Negative (NEGATIVE) 09/14/18 15:45 Urine Bilirubin Negative (NEGATIVE) 09/14/18 15:45 Urine Urobilinogen 0.2 E.U./dL (<1 E.U./dL) 09/14/18 15:45 Ur Leukocyte Esterase Trace Katina/uL (NEGATIVE) H 09/14/18 15:45 Urine RBC Negative /hpf (0-2) 09/14/18 15:45 Urine WBC 0 - 2 /hpf (0-6) 09/14/18 15:45 Ur Epithelial Cells None /hpf (0-5) 09/14/18 15:45 Urine Bacteria Neg (NEG) 09/14/18 15:45 Hyaline Casts 0 - 2 /hpf 09/14/18 15:45 - Hospital Course Hospital Course: Pt is a 33 year old male, with PMH of diverticulitis, presents to the Emergency Department complaining of LLQ abdominal pain since (09/12/18) Thursday morning. Pt states he has had a constant sharp 10/10 pain which has gotten progressively worse and radiates to his right side since Thursday, prompting him to present to the ED for medical evaluation. Pt also had an episode of diverticulitis in early July which was diagnosed at [facility]. Patient denies any other complaints. Denies any fever, chills, nausea, vomiting, or diarrhea. CT A/P resulted segmental colitis affecting the proximal to mid sigmoid colon with no definite free intraperitoneal gas or definite abscess appreciated; borderline diverticular changes may indicate diverticulitis; lack of intravenous and oral contrast limits the evaluation. Patient was started on Metronidazole and Ceftriaxone. Patient had colonoscopy performed 07/2018, results were reviewed. He was also found to have leukocytosis and anemia, both were monitored and resolved. Blood and urine cultures were obtained and resulted benign. He was seen by gastroenterology, who recommended continuing antibiotics, advancing diet, and discharge with 10-12 day course of antibiotics, follow up outpatient. Patient tolerated PO without problem. He was counseled on importance of completing outpatient antibiotic regimen. Patient is stable for discharge to home as per Dr. Torres. He was counseled to return to the emergency department if symptoms return or worsen. Patient is to follow up with primary medical doctor, within 3-5 days of discharge. Patient is to follow up with gastroenterology within 3-5 days of discharge. Patient is to take Metronidazole and Ciprofloxacin as prescribed and instructed. Counseled on side effects of medications and importance of completing antibiotic regimen. Patient is to take Motrin or Tylenol for pain, as needed. Patient is to continue home medications as prescribed and instructed in discharge instructions. Reviewed all medications with patient, and he understands instructions. Patient understands and agrees with discharge plan. - Date & Time of H&P Date of H&P: 09/17/18 Time of H&P: 06:00 Discharge Exam - Head Exam Head Exam: ATRAUMATIC, NORMAL INSPECTION, NORMOCEPHALIC - Eye Exam Eye Exam: EOMI - ENT Exam ENT Exam: Mucous Membranes Moist - Neck Exam Neck exam: Full Rom - Respiratory Exam Respiratory Exam: NORMAL BREATHING PATTERN. absent: Accessory Muscle Use, Wheezes, Respiratory Distress - Cardiovascular Exam Cardiovascular Exam: RRR, +S1, +S2. absent: Diastolic murmur, Systolic Murmur - GI/Abdominal Exam GI & Abdominal Exam: Normal Bowel Sounds, Soft, Tenderness, Unremarkable Additional comments: mild LLQ tenderness - Neurological Exam Neurological exam: Alert, Oriented x3 - Psychiatric Exam Psychiatric exam: Normal Affect, Normal Mood - Skin Skin Exam: Abrasion, Warm Discharge Plan - Discharge Medications Prescriptions: Ciprofloxacin HCl [Cipro] 500 mg PO BID #24 tablet Ibuprofen [Motrin Tab] 800 mg PO Q8 #12 tab Metronidazole [Flagyl] 500 mg PO TID #36 tablet - Follow Up Plan Condition: FAIR Disposition: HOME/ ROUTINE Instructions: Irritable Bowel Syndrome, Diverticulitis (DC), Acute Abdominal Pain (DC), Acute Abdominal Pain (GEN) Additional Instructions: You have been discharged for [facility] 1. please follow up with your primary care physician within 1 week 2. please follow up with your gastrointestinal physician within 1 week 3. please complete the entire course of antibiotics you are being prescribed 4. if your symptoms return or worsen, please go to the nearest emergency department Referrals: Jhon Bartholomew MD [Primary Care Provider] - <Daniel Torres - Last Filed: 09/17/18 15:00> Provider - Provider Date of Admission: 09/14/18 15:04 Attending physician: Daniel Torres MD Primary care physician: Jhon Bartholomew MD Hospital Course - Lab Results Lab Results: Micro Results 09/14/18 15:26 Blood Blood Culture - Preliminary NO GROWTH AFTER 48 HOURS 09/14/18 14:50 Blood Blood Culture - Preliminary NO GROWTH AFTER 48 HOURS 09/14/18 15:45 Urine Urine Culture - Final No Growth (<1,000 CFU/ML) Most Recent Lab Values WBC 5.1 10^3/uL (4.5-11.0) 09/17/18 07:15 RBC 4.46 10^6/uL (3.5-6.1) 09/17/18 07:15 Hgb 11.9 g/dL (14.0-18.0) L 09/17/18 07:15 Hct 35.1 % (42.0-52.0) L 09/17/18 07:15 MCV 78.7 fl (80.0-105.0) L 09/17/18 07:15 MCH 26.7 pg (25.0-35.0) 09/17/18 07:15 MCHC 33.9 g/dl (31.0-37.0) 09/17/18 07:15 RDW 14.2 % (11.5-14.5) 09/17/18 07:15 Plt Count 277 10^3/uL (120.0-450.0) 09/17/18 07:15 MPV 10.4 fl (7.0-11.0) 09/17/18 07:15 Gran % 80.5 % (50.0-68.0) H 09/14/18 14:10 Lymph % (Auto) 10.2 % (22.0-35.0) L 09/14/18 14:10 Todd % (Auto) 8.8 % (1.0-6.0) H 09/14/18 14:10 Eos % (Auto) 0.4 % (1.5-5.0) L 09/14/18 14:10 Baso % (Auto) 0.1 % (0.0-3.0) 09/14/18 14:10 Gran # 9.28 (1.4-6.5) H 09/14/18 14:10 Lymph # (Auto) 1.2 (1.2-3.4) 09/14/18 14:10 Todd # (Auto) 1.0 (0.1-0.6) H 09/14/18 14:10 Eos # (Auto) 0.1 (0.0-0.7) 09/14/18 14:10 Baso # (Auto) 0.01 K/mm3 (0.0-2.0) 09/14/18 14:10 PT 13.3 SECONDS (9.4-12.5) H 09/14/18 14:10 INR 1.15 09/14/18 14:10 APTT 32.7 Seconds (25.1-36.5) 09/14/18 14:10 pO2 37 mm/Hg (30-55) 09/14/18 14:10 VBG pH 7.35 (7.32-7.43) 09/14/18 14:10 VBG pCO2 56.0 (40-60) 09/14/18 14:10 VBG HCO3 30.9 mmol/l (21-28) H 09/14/18 14:10 VBG Total CO2 32.6 mmol.L (22-28) H 09/14/18 14:10 VBG O2 Sat (Calc) 70.9 % (40-65) H 09/14/18 14:10 VBG Base Excess 3.8 mmol/L (0.0-2.0) H 09/14/18 14:10 VBG Potassium 4.6 mmol/L (3.6-5.2) 09/14/18 14:10 Sodium 136.0 mmol/L (132-148) 09/14/18 14:10 Chloride 100.0 mmol/L (98-107) 09/14/18 14:10 Glucose 98 mg/dl (75-110) 09/14/18 14:10 Lactate 0.9 mmol/L (0.7-2.1) 09/14/18 14:10 FiO2 21.0 % 09/14/18 14:10 Sodium 138 mmol/L (132-148) 09/17/18 07:15 Potassium 4.3 mmol/L (3.6-5.0) 09/17/18 07:15 Chloride 109 mmol/L (98-107) H 09/17/18 07:15 Carbon Dioxide 23 mmol/L (21-33) 09/17/18 07:15 Anion Gap 11 (10-20) 09/17/18 07:15 BUN 13 mg/dL (7-21) 09/17/18 07:15 Creatinine 0.9 mg/dl (0.8-1.5) 09/17/18 07:15 Est GFR ( Amer) > 60 09/17/18 07:15 Est GFR (Non-Af Amer) > 60 09/17/18 07:15 Random Glucose 96 mg/dL (70-110) 09/17/18 07:15 Calcium 8.7 mg/dL (8.4-10.5) 09/17/18 07:15 Total Bilirubin < 0.1 mg/dL (0.2-1.3) L 09/17/18 07:15 AST 19 U/L (17-59) 09/17/18 07:15 ALT 26 U/L (7-56) 09/17/18 07:15 Alkaline Phosphatase 51 U/L (38-126) 09/17/18 07:15 Total Protein 5.9 g/dL (5.8-8.3) 09/17/18 07:15 Albumin 3.2 g/dL (3.0-4.8) 09/17/18 07:15 Globulin 2.7 gm/dL 09/17/18 07:15 Albumin/Globulin Ratio 1.2 (1.1-1.8) 09/17/18 07:15 Amylase 86 U/L (35-125) 09/14/18 14:10 Lipase 60 U/L (23-300) 09/14/18 14:10 Venous Blood Potassium 4.6 mmol/L (3.6-5.2) 09/14/18 14:10 Urine Color Yellow (YELLOW) 09/14/18 15:45 Urine Appearance Clear (CLEAR) 09/14/18 15:45 Urine pH 6.5 (4.7-8.0) 09/14/18 15:45 Ur Specific [place] 1.015 (1.005-1.035) 09/14/18 15:45 Urine Protein Negative mg/dL (<30 mg/dL) 09/14/18 15:45 Urine Glucose (UA) Negative mg/dL (NEGATIVE) 09/14/18 15:45 Urine Ketones 15 mg/dL (NEGATIVE) H 09/14/18 15:45 Urine Blood Negative (NEGATIVE) 09/14/18 15:45 Urine Nitrate Negative (NEGATIVE) 09/14/18 15:45 Urine Bilirubin Negative (NEGATIVE) 09/14/18 15:45 Urine Urobilinogen 0.2 E.U./dL (<1 E.U./dL) 09/14/18 15:45 Ur Leukocyte Esterase Trace Katina/uL (NEGATIVE) H 09/14/18 15:45 Urine RBC Negative /hpf (0-2) 09/14/18 15:45 Urine WBC 0 - 2 /hpf (0-6) 09/14/18 15:45 Ur Epithelial Cells None /hpf (0-5) 09/14/18 15:45 Urine Bacteria Neg (NEG) 09/14/18 15:45 Hyaline Casts 0 - 2 /hpf 09/14/18 15:45 Attending/Attestation - Attestation I have personally seen and examined this patient.: Yes I have fully participated in the care of the patient.: Yes I have reviewed all pertinent clinical information, including history, physical exam and plan: Yes Notes (Text): 09/17/18 14:57 33 year old male with past medical history of diverticulitis who presented with complaint of left lower quadrant pain. He states when didn't complete his recently prescribed antibiotics last month from his initial diverticulitis episode. CT abd/pelvis showed segmental colitis of the proximal to mid sigmoid colon with borderline diverticular changes. He was started on iv antibiotics and fluids. His symptoms slowly improved and his diet was advanced which he tolerated. He was seen by GI. Patient is discharged home to follow up with pmd. Continue with antibiotics as prescribed. Follow up with GI. Daniel Torres MD Hospitalist.
[2018-09-17 14:47] VITALS: BP 130/81; PULSE 73; TEMP 97.7; O2SAT 100
== END 2018-09-17 15:23 | disposition home or self-care (01) | DRG 392 ==
LOC: ED 12:41 → ERH 15:04 → 5RSO 18:38
PROVIDERS: ADMIT Internal Medicine; ATTEND Internal Medicine
DX: K57.32 Diverticulitis of large intestine without perforation or abscess without bleeding (principal); K52.9 Noninfective gastroenteritis and colitis, unspecified; F17.210 Nicotine dependence, cigarettes, uncomplicated; F12.90 Cannabis use, unspecified, uncomplicated; D64.9 Anemia, unspecified